=== PATIENT | male | born 1965 | race African-American/Black ===

== ENCOUNTER 2018-04-21 18:37 | Emergency (ER) | payer MEDICARE, MEDICAID ==
[~2018-04-21 18:37] MED LIST: AMLO2.5T3 PO; ASPI81TA45 PO; CLOP75TA PO; NICO-487 TD; OXYC5TAB3 PO; POLY17PO5 PO
== END 2018-04-21 19:16 | disposition left against medical advice (07) ==
LOC: ED 18:52
DX: R10.9 Unspecified abdominal pain (principal); Z53.21 Procedure and treatment not carried out due to patient leaving prior to being seen by health care provider